=== PATIENT | male | born 1960 | race African-American/Black ===

== ENCOUNTER 2019-08-30 19:27 | Inpatient (IN) | payer MEDICAID, OTHER ==
[~2019-08-30] VITALS: Ht 180.3 cm; Wt 128.1 kg
[~2019-08-30 19:27] MED LIST: ADENOSINE 6 MG/2 ML ONE
--- NOTE | 2019-08-30 19:55 | NUR ---
Xray awaiting CT C-spine clearance
[2019-08-30] MEDS ORDERED: SODIUM CHLORIDE 0.9% 1,000ML IVBOLUS ONE (20:00)
--- NOTE | 2019-08-30 20:00 | NUR ---
PATIENT TAKEN TO CT WITH TWO RNS ON CARDIAC MONITORING. PATIENT TOLERATED CT WELL, C-SPINE PRECAUTIONS USED. PATIENT'S STATUS REMAINED UNCHANGED THROUGHOUT PROCESS. UPON ARRIVING TO ROOM THE PATIENT STATED THAT HE WAS BECOMING SLEEPY, PATIENT REMAINS AWAKE AND ABLE TO ANSWER QUESTIONS APPROPRIATELY. PATIENT WILL BE TRANSFERED TO [facility] FOR HIGHER LEVEL OF CARE. REPORT GIVEN TO TRAUMA RN
[2019-08-30] MEDS ORDERED: NOREPINEPHRINE 8 MG in SODIUM CHLORIDE 0.9% 242 ML IV PRN (20:39)
--- NOTE | 2019-08-30 20:49 | NUR ---
pt rm was moved to t3 d/t spinal injury per dr alcala
[2019-08-30] MEDS ORDERED: DEXAMETHASONE 4 MG/ML, 1ML ONE (20:55)
[2019-08-30 20:57] LABS: BASOPHILS # (AUTO) 0.05 x10^3/uL (0-0.1); BASOPHILS % (AUTO) 1 % (0-1); EOSINOPHILS # (AUTO) 0.25 x10^3/uL (0-0.4); EOSINOPHILS % (AUTO) 3 % (1-7); LYMPHOCYTES # (AUTO) 1.33 x10^3/uL (1-3.4); LYMPHOCYTES % (AUTO) 14 % (22-44); MD NO; MEAN CORPUSCULAR HEMOGLOBIN 31.5 pg (27.5-34.5); MEAN CORPUSCULAR HGB CONC 32.2 g/dL (33.2-36.2); MEAN CORPUSCULAR VOLUME 97.8 fL (81-97); MEAN PLATELET VOLUME 7.7 fL (7.4-10.4); MONOCYTES # (AUTO) 0.59 x10^3/uL (0.2-0.8); MONOCYTES % (AUTO) 6 % (2-9); NEUTROPHILS # (AUTO) 7.49 x10^3/uL (1.8-6.8); NEUTROPHILS % (AUTO) 77 % (42-75); PLATELET COUNT 221 x10^3/uL (130-400); RED BLOOD COUNT 3.25 x10^6/uL (4.38-5.82); RED CELL DISTRIBUTION WIDTH 14.6 % (9.4-14.8)
[2019-08-30] MEDS ORDERED: DEXAMETHASONE 4 MG/ML, 1ML IVPush ONE (21:00)
[2019-08-30 21:06] LABS: INTERNATIONAL NORMALIZED RATIO 0.97 (0.93-1.1); PROTHROMBIN TIME 10.3 Seconds (9.6-11.5)
[2019-08-30 21:07] LABS: ALANINE AMINOTRANSFERASE 16 U/L (12-78); ALBUMIN 2.3 g/dL (3.4-5.0); ANION GAP 3 mmol/L (5-15); CALCIUM 7.1 mg/dL (8.5-10.1); CHLORIDE 110 mmol/L (98-107); CREATININE 1.64 mg/dL (0.7-1.3)
[2019-08-30 21:11] LABS: ALKALINE PHOSPHATASE 52 U/L (45-117); BILIRUBIN,TOTAL 0.3 mg/dL (0.2-1.0); TOTAL PROTEIN 6.1 g/dL (6.4-8.2); TROPONIN I < 0.015 ng/mL (0.000-0.045)
[2019-08-30] MEDS ORDERED: LORazepam 2 MG/ML, 1ML ONE (21:18)
[2019-08-30] MEDS ORDERED: LORazepam 2 MG/ML, 1ML IVPush ONE (21:30)
[2019-08-30 21:38] LABS: MICROSCOPIC NOT IND
[2019-08-30 21:44] LABS: CULTURE INDICATED? NO
[2019-08-30] MEDS ORDERED: LISI-170 PO (23:05)
[2019-08-30] MEDS ORDERED: IBUP-1222 PO (23:05)
[2019-08-30] MEDS ORDERED: HYDR50TA99 PO (23:05)
[2019-08-30] MEDS ORDERED: CARV25TA12 PO (23:05)
[2019-08-30] MEDS ORDERED: PRED20TA PO (23:05)
[2019-08-30] MEDS ORDERED: FURO-92 PO (23:05)
[2019-08-30] MEDS ORDERED: CARV12.5 PO (23:05)
[2019-08-30] MEDS ORDERED: ALBU1.25 NEB (23:06)
--- NOTE | 2019-08-30 23:08 | NUR ---
mri with neck collar on by dr alcala guided pt was rodger hr up to 31 junctional rhythm, notified to dr alcala . given levophed iv via gtt during the mri then hr was maintained up tp 70-80'd pt is having severe sleep apnea with snoring then hr dropped up to 40'd md aware pt needs neck collar and map >95 per neurosurgeon order pt is alert orient answered all qurstion from staffs home meds rec completed at this time dr amarilis ortega at bed side for admit fatimah
--- NOTE | 2019-08-30 23:14 | NUR ---
currently pt is npo until further notice by
[2019-08-30] MEDS ORDERED: ONDANSETRON 2MG/ML, 2ML IVPush PRN (23:30)
[2019-08-30] MEDS ORDERED: morphine SULFATE 10 MG/ML, 1ML IVPush PRN (23:30)
--- NOTE | 2019-08-30 23:31 | NUR ---
given report to rn antonio bp stable with levophed neuro doesnt change
[2019-08-30 23:45] VITALS: BP 130/92
[2019-08-31] MEDS: NICOTINE 14MG/24 HR PATCH.TD24 TD SCH ×2 (00:28→21:31)
[2019-08-31] MEDS: SODIUM CHLORIDE 0.9% 1,000 ML IV SCH (00:28)
[2019-08-31] MEDS: INSULIN LISPRO 100 UNITS/ML, PEN SQ-INSULIN SCH ×5 (00:29→21:38)
[2019-08-31] MEDS: FAMOTIDINE 20 MG/2 ML IVPush SCH ×2 (00:29→13:00)
[2019-08-31] MEDS ORDERED: ALBUTEROL SULFATE 2.5 MG/3 ML NPPB PRN ×2 (00:30→12:00)
[2019-08-31 01:05] LABS: TROPONIN I < 0.015 ng/mL (0.000-0.045)
[2019-08-31] MEDS: NOREPINEPHRINE 8 MG in SODIUM CHLORIDE 0.9% 242 ML IV PRN (01:32)
[2019-08-31 02:44] LABS: AMPHETAMINE SCREEN, URINE Negative (Negative); BARBITURATE SCREEN, URINE Negative (Negative); BENZODIAZEPINE SCREEN, URINE Negative (Negative); CANNABINOID SCREEN, URINE Negative (Negative); COCAINE SCREEN, URINE Negative (Negative); METHADONE SCREEN, URINE Negative (Negative); OPIATE SCREEN, URINE Negative (Negative)
[2019-08-31 06:12] VITALS: BP 134/77
[2019-08-31 08:01] LABS: ANION GAP 3 mmol/L (5-15); CALCIUM 8.5 mg/dL (8.5-10.1); CHLORIDE 107 mmol/L (98-107); CREATININE 1.56 mg/dL (0.7-1.3)
[2019-08-31 08:05] LABS: TROPONIN I < 0.015 ng/mL (0.000-0.045)
[2019-08-31 08:11] LABS: MEAN CORPUSCULAR HEMOGLOBIN 31.5 pg (27.5-34.5); MEAN CORPUSCULAR HGB CONC 32.2 g/dL (33.2-36.2); MEAN CORPUSCULAR VOLUME 97.7 fL (81-97); MEAN PLATELET VOLUME 7.9 fL (7.4-10.4); PLATELET COUNT 304 x10^3/uL (130-400); RED BLOOD COUNT 4.17 x10^6/uL (4.38-5.82); RED CELL DISTRIBUTION WIDTH 14.4 % (9.4-14.8)
[2019-08-31 08:24] LABS: BASOPHILS # (AUTO) 0.02 x10^3/uL (0-0.1); BASOPHILS % (AUTO) 0 % (0-1); EOSINOPHILS % (AUTO) 0 % (1-7); LYMPHOCYTES % (AUTO) 5 % (22-44); MD SCAN; MONOCYTES # (AUTO) 0.03 x10^3/uL (0.2-0.8); MONOCYTES % (AUTO) 0 % (2-9); NEUTROPHILS # (AUTO) 10.47 x10^3/uL (1.8-6.8)
[2019-08-31 08:25] LABS: NEUTROPHILS % (AUTO) 95 % (42-75)
[2019-08-31] MEDS: SENNA/DOCUSATE TABLET PO SCH (09:00)
[2019-08-31] MEDS ORDERED: THROMBIN 5,000 UNIT VIAL TP ONE ×2 (10:27→13:44)
[2019-08-31] MEDS ORDERED: METHYLENE BLUE 10 MG/ML 10ML ONE (10:27)
[2019-08-31] MEDS ORDERED: BUPIVACAINE/PF 0.5% ONE (10:27)
[2019-08-31] MEDS ORDERED: BACITRACIN 50,000 UNIT ONE (10:28)
[2019-08-31] MEDS ORDERED: EPINEPHRINE 1 MG/ML, 1ML ONE (10:28)
[2019-08-31] MEDS ORDERED: FENTANYL PF 250 MCG/5ML ONE ×2 (10:49→13:32)
[2019-08-31] MEDS ORDERED: MIDAZOLAM 1 MG/ML, 2ML ONE (10:49)
[2019-08-31] MEDS ORDERED: PROPOFOL 10 MG/ML, 20ML ONE (10:53)
[2019-08-31] MEDS ORDERED: ROCURONIUM 10MG/ML,5ML ONE (10:53)
[2019-08-31] MEDS ORDERED: CEFAZOLIN 1,000 MG ONE ×2 (10:53→12:14)
[2019-08-31] MEDS ORDERED: NEOSTIGMINE 1 MG/ML, 10ML ONE (10:53)
[2019-08-31] MEDS ORDERED: PROPOFOL 100 ML ONE (10:53)
[2019-08-31] MEDS ORDERED: GLYCOPYRROLATE 0.2MG/1ML, 5ML ONE (10:53)
[2019-08-31] MEDS ORDERED: MEPERIDINE/PF 25MG/ML,1ML IVPush PRN (12:00)
[2019-08-31] MEDS ORDERED: MORPHINE SULFATE 4 MG/ML, 1ML IVPush PRN (12:00)
[2019-08-31] MEDS ORDERED: OXYcodone 5 MG/5 ML ORAL.SOL UDC PO PRN (12:00)
[2019-08-31] MEDS ORDERED: ALBUTEROL/IPRATROPIUM 2.5MG/0.5MG, 3 ML NPPB PRN (12:00)
[2019-08-31] MEDS ORDERED: HYDROmorphone 2 MG/ML, 1ML IVPush PRN (12:00)
[2019-08-31] MEDS ORDERED: ONDANSETRON 2MG/ML, 2ML IV PRN (12:00)
[2019-08-31] MEDS ORDERED: LABETALOL 5MG/ML, 20ML IV PRN (12:00)
[2019-08-31] MEDS ORDERED: FENTANYL PF 100 MCG/2ML IV PRN (12:00)
[2019-08-31] MEDS ORDERED: hydrALAzine 20 MG/ML, 1ML IV PRN (12:00)
[2019-08-31] MEDS ORDERED: PHENYLEPHRINE 10 MG/ML ONE (12:28)
[2019-08-31] MEDS ORDERED: SUGAMMADEX 200 MG/2 ML IVPush ONE ×2 (12:47)
[2019-08-31] MEDS ORDERED: BACITRACIN OINT 500U/GM, 15 GM ONE (12:52)
[2019-08-31] MEDS ORDERED: PROPOFOL 50 ML ONE ×2 (13:50→14:53)
[2019-08-31] MEDS ORDERED: VANCOMYCIN 1,000 MG ONE (14:27)
[2019-08-31] MEDS ORDERED: INSULIN SINGLE DOSE, ER ONE (14:36)
[2019-08-31] MEDS ORDERED: SENNA/DOCUSATE TABLET PO PRN (16:00)
[2019-08-31] MEDS ORDERED: ACETAMINOPHEN 650 MG SUPP PR PRN (16:00)
[2019-08-31] MEDS ORDERED: MAGNESIUM HYDROXIDE 8%, 30ML UDC PO PRN (16:00)
[2019-08-31] MEDS ORDERED: DIPHENHYDRAMINE 50 MG CAPSULE PO PRN (16:00)
[2019-08-31] MEDS ORDERED: PHARMACY MAY ADJ FOR RENAL FX MC PRN (16:00)
[2019-08-31] MEDS ORDERED: CYCLOBENZAPRINE 10 MG TABLET PO PRN (16:00)
[2019-08-31] MEDS ORDERED: ONDANSETRON 2MG/ML, 2ML IVPush PRN (16:00)
[2019-08-31] MEDS ORDERED: PROMETHAZINE 25 MG/ML, 1ML IM PRN (16:00)
[2019-08-31] MEDS ORDERED: INSULIN REGULAR 100 UNITS/ML, 3ML VIAL SQ-INSULIN PRN (16:00)
[2019-08-31] MEDS ORDERED: HYDROmorphone 1 MG/ML, 1ML INJ ONE (16:35)
[2019-08-31] MEDS ORDERED: NS + 20MEQ KCL 1,000 ML IV SCH (17:00)
[2019-08-31] MEDS ORDERED: METHOCARBAMOL 1,000 MG in DEXTROSE 5% 100 ML IV ONE (17:00)
[2019-08-31 18:44] LABS: ANION GAP 2 mmol/L (5-15); CALCIUM 8.1 mg/dL (8.5-10.1); CHLORIDE 112 mmol/L (98-107); CREATININE 1.16 mg/dL (0.7-1.3)
[2019-08-31 20:15] VITALS: BP 126/68
[2019-08-31] MEDS: CEFAZOLIN PMX 1GM/50ML 50 ML IVPB SCH (21:30)
[2019-09-01 04:35] LABS: ALBUMIN 2.4 g/dL (3.4-5.0); ANION GAP 6 mmol/L (5-15); CHLORIDE 110 mmol/L (98-107)
[2019-09-01 04:39] LABS: ALANINE AMINOTRANSFERASE 19 U/L (12-78); ALKALINE PHOSPHATASE 50 U/L (45-117); BILIRUBIN,TOTAL 0.6 mg/dL (0.2-1.0); CREATININE 1.17 mg/dL (0.7-1.3); TOTAL PROTEIN 7.2 g/dL (6.4-8.2)
[2019-09-01] MEDS: SODIUM CHLORIDE 0.9% 1,000 ML IV SCH ×2 (04:53→17:40)
[2019-09-01 05:15] LABS: MEAN CORPUSCULAR HEMOGLOBIN 31.3 pg (27.5-34.5); PLATELET COUNT 230 x10^3/uL (130-400); RED BLOOD COUNT 3.61 x10^6/uL (4.38-5.82); RED CELL DISTRIBUTION WIDTH 14.4 % (9.4-14.8)
[2019-09-01 05:53] LABS: BASOPHILS % (AUTO) 0 % (0-1); EOSINOPHILS % (AUTO) 0 % (1-7); LYMPHOCYTES % (AUTO) 5 % (22-44); MD SCAN; MONOCYTES # (AUTO) 0.91 x10^3/uL (0.2-0.8); MONOCYTES % (AUTO) 5 % (2-9); NEUTROPHILS # (AUTO) 15.37 x10^3/uL (1.8-6.8); NEUTROPHILS % (AUTO) 89 % (42-75)
[2019-09-01] MEDS: CEFAZOLIN PMX 1GM/50ML 50 ML IVPB SCH (05:55)
[2019-09-01] MEDS: INSULIN LISPRO 100 UNITS/ML, PEN SQ-INSULIN SCH (07:00)
[2019-09-01] MEDS: ACETAMINOPHEN 325 MG TABLET PO PRN (07:33)
[2019-09-01 08:00] VITALS: BP 133/69
[2019-09-01] MEDS: NOREPINEPHRINE 8 MG in SODIUM CHLORIDE 0.9% 242 ML IV PRN (08:01)
[2019-09-01] MEDS: NEUTRA PHOS K 250 MG TABLET PO SCH ×2 (10:21→17:40)
[2019-09-01] MEDS: SENNA/DOCUSATE TABLET PO SCH (10:21)
[2019-09-01] MEDS: FAMOTIDINE 20 MG/2 ML IVPush SCH (10:21)
[2019-09-01] MEDS: INSULIN REGULAR 100 UNITS/ML, 3ML VIAL SQ-INSULIN SCH ×3 (11:00→21:00)
[2019-09-01 20:00] VITALS: BP 147/75
[2019-09-01] MEDS: OXYcodone/APAP 5/325MG TABLET PO PRN (21:57)
[2019-09-01] MEDS ORDERED: METHOCARBAMOL 750 MG in DEXTROSE 5% 100 ML IV PRN (23:00)
[2019-09-01] MEDS: NICOTINE 14MG/24 HR PATCH.TD24 TD SCH (23:43)
[2019-09-02 00:56] LABS: ALANINE AMINOTRANSFERASE 17 U/L (12-78); ALBUMIN 2.3 g/dL (3.4-5.0); ANION GAP 2 mmol/L (5-15); CALCIUM 8.1 mg/dL (8.5-10.1); CHLORIDE 110 mmol/L (98-107)
[2019-09-02 00:58] LABS: ALKALINE PHOSPHATASE 44 U/L (45-117); BILIRUBIN,TOTAL 0.9 mg/dL (0.2-1.0); TOTAL PROTEIN 6.7 g/dL (6.4-8.2)
[2019-09-02] MEDS: OXYcodone/APAP 5/325MG TABLET PO PRN ×3 (02:40→19:55)
[2019-09-02 05:37] LABS: ANION GAP 2 mmol/L (5-15); CALCIUM 8.2 mg/dL (8.5-10.1); CHLORIDE 109 mmol/L (98-107)
[2019-09-02 05:38] LABS: BASOPHILS % (AUTO) 0 % (0-1); EOSINOPHILS % (AUTO) 0 % (1-7); LYMPHOCYTES # (AUTO) 1.29 x10^3/uL (1-3.4); LYMPHOCYTES % (AUTO) 10 % (22-44); MD NO; MEAN CORPUSCULAR HEMOGLOBIN 31.8 pg (27.5-34.5); MEAN CORPUSCULAR HGB CONC 32.6 g/dL (33.2-36.2); MEAN CORPUSCULAR VOLUME 97.7 fL (81-97); MEAN PLATELET VOLUME 8.1 fL (7.4-10.4); MONOCYTES # (AUTO) 1.08 x10^3/uL (0.2-0.8); MONOCYTES % (AUTO) 8 % (2-9); NEUTROPHILS # (AUTO) 10.92 x10^3/uL (1.8-6.8); NEUTROPHILS % (AUTO) 82 % (42-75); PLATELET COUNT 193 x10^3/uL (130-400); RED BLOOD COUNT 3.33 x10^6/uL (4.38-5.82); RED CELL DISTRIBUTION WIDTH 14.2 % (9.4-14.8)
[2019-09-02] MEDS: INSULIN REGULAR 100 UNITS/ML, 3ML VIAL SQ-INSULIN SCH ×4 (07:00→19:55)
[2019-09-02] MEDS: SODIUM CHLORIDE 0.9% 1,000 ML IV SCH ×2 (07:32→21:44)
[2019-09-02] MEDS: SENNA/DOCUSATE TABLET PO SCH (07:32)
[2019-09-02] MEDS: FAMOTIDINE 20 MG/2 ML IVPush SCH (07:33)
[2019-09-02 08:00] VITALS: BP 131/81
[2019-09-02] MEDS: HEPARIN 5,000 UNITS/ML, 1ML SQ SCH ×2 (11:57→19:55)
[2019-09-02] MEDS ORDERED: DOCUSATE 50 MG/5 ML, 10ML UDC PO PRN (16:00)
[2019-09-02] MEDS ORDERED: LACTULOSE 20 GM/30 ML UDC PO PRN (16:00)
[2019-09-02] MEDS ORDERED: POLYETHYLENE GLYCOL 17 GM PACKET PO PRN (16:00)
[2019-09-02] MEDS ORDERED: BISACODYL 10 MG SUPP PR PRN (16:00)
[2019-09-02 20:00] VITALS: BP 146/73
[2019-09-03] MEDS: NICOTINE 14MG/24 HR PATCH.TD24 TD SCH ×2 (00:04→22:41)
[2019-09-03] MEDS: OXYcodone/APAP 5/325MG TABLET PO PRN ×2 (02:18→15:40)
[2019-09-03] MEDS: NOREPINEPHRINE 8 MG in SODIUM CHLORIDE 0.9% 242 ML IV PRN (05:12)
[2019-09-03] MEDS: HYDROmorphone 1 MG/ML, 1ML INJ IVPush PRN ×2 (05:26→09:13)
[2019-09-03] MEDS: HEPARIN 5,000 UNITS/ML, 1ML SQ SCH ×3 (05:26→20:46)
[2019-09-03 05:35] LABS: BASOPHILS # (AUTO) 0.02 x10^3/uL (0-0.1); BASOPHILS % (AUTO) 0 % (0-1); EOSINOPHILS # (AUTO) 0.02 x10^3/uL (0-0.4); EOSINOPHILS % (AUTO) 0 % (1-7); LYMPHOCYTES # (AUTO) 1.19 x10^3/uL (1-3.4); LYMPHOCYTES % (AUTO) 10 % (22-44); MD NO; MEAN CORPUSCULAR HEMOGLOBIN 31.2 pg (27.5-34.5); MEAN CORPUSCULAR HGB CONC 31.9 g/dL (33.2-36.2); MEAN PLATELET VOLUME 7.7 fL (7.4-10.4); MONOCYTES # (AUTO) 0.66 x10^3/uL (0.2-0.8); MONOCYTES % (AUTO) 5 % (2-9); NEUTROPHILS # (AUTO) 10.34 x10^3/uL (1.8-6.8); NEUTROPHILS % (AUTO) 85 % (42-75); PLATELET COUNT 191 x10^3/uL (130-400)
[2019-09-03 05:46] LABS: ANION GAP 4 mmol/L (5-15); CALCIUM 8.3 mg/dL (8.5-10.1); CHLORIDE 110 mmol/L (98-107)
[2019-09-03 05:47] LABS: CREATININE 0.85 mg/dL (0.7-1.3)
[2019-09-03] MEDS: INSULIN REGULAR 100 UNITS/ML, 3ML VIAL SQ-INSULIN SCH ×4 (07:00→20:46)
[2019-09-03] MEDS ORDERED: FUROSEMIDE 20 MG TABLET PO SCH (09:00)
[2019-09-03] MEDS: SENNA/DOCUSATE TABLET PO SCH (09:17)
[2019-09-03] MEDS: FAMOTIDINE 20 MG/2 ML IVPush SCH (09:25)
[2019-09-03] MEDS: ACETAMINOPHEN 325 MG TABLET PO PRN ×2 (12:13→20:45)
[2019-09-03] MEDS: METHOCARBAMOL 750 MG TABLET PO SCH (22:41)
[2019-09-04] MEDS: OXYcodone/APAP 5/325MG TABLET PO PRN (01:15)
[2019-09-04] MEDS: METHOCARBAMOL 750 MG TABLET PO SCH ×3 (05:15→23:41)
[2019-09-04] MEDS: HEPARIN 5,000 UNITS/ML, 1ML SQ SCH ×3 (05:15→21:56)
[2019-09-04 05:50] LABS: MEAN CORPUSCULAR HGB CONC 31.6 g/dL (33.2-36.2); MEAN CORPUSCULAR VOLUME 97.9 fL (81-97); MEAN PLATELET VOLUME 8.1 fL (7.4-10.4); PLATELET COUNT 200 x10^3/uL (130-400); RED CELL DISTRIBUTION WIDTH 13.9 % (9.4-14.8)
[2019-09-04 06:12] LABS: CALCIUM 8.3 mg/dL (8.5-10.1); CHLORIDE 107 mmol/L (98-107)
[2019-09-04 06:16] LABS: ANION GAP 3 mmol/L (5-15); CREATININE 0.93 mg/dL (0.7-1.3)
[2019-09-04 06:35] LABS: BASOPHILS % (AUTO) 0 % (0-1); EOSINOPHILS # (AUTO) 0.03 x10^3/uL (0-0.4); EOSINOPHILS % (AUTO) 0 % (1-7); LYMPHOCYTES # (AUTO) 1.33 x10^3/uL (1-3.4); LYMPHOCYTES % (AUTO) 11 % (22-44); MD NO; MONOCYTES # (AUTO) 0.88 x10^3/uL (0.2-0.8); MONOCYTES % (AUTO) 7 % (2-9); NEUTROPHILS # (AUTO) 10.13 x10^3/uL (1.8-6.8); NEUTROPHILS % (AUTO) 82 % (42-75)
[2019-09-04] MEDS: INSULIN REGULAR 100 UNITS/ML, 3ML VIAL SQ-INSULIN SCH ×4 (07:00→21:53)
[2019-09-04] MEDS: SENNA/DOCUSATE TABLET PO SCH (08:10)
[2019-09-04] MEDS: FAMOTIDINE 20 MG/2 ML IVPush SCH (08:10)
[2019-09-04] MEDS: ACETAMINOPHEN 325 MG TABLET PO PRN (08:18)
[2019-09-04] MEDS: NICOTINE 14MG/24 HR PATCH.TD24 TD SCH (23:41)
[2019-09-05 03:53] LABS: BASOPHILS # (AUTO) 0.04 x10^3/uL (0-0.1); BASOPHILS % (AUTO) 0 % (0-1); EOSINOPHILS # (AUTO) 0.03 x10^3/uL (0-0.4); EOSINOPHILS % (AUTO) 0 % (1-7); LYMPHOCYTES # (AUTO) 1.65 x10^3/uL (1-3.4); LYMPHOCYTES % (AUTO) 14 % (22-44); MD NO; MEAN CORPUSCULAR HEMOGLOBIN 31.3 pg (27.5-34.5); MEAN CORPUSCULAR HGB CONC 32.4 g/dL (33.2-36.2); MEAN CORPUSCULAR VOLUME 96.5 fL (81-97); MEAN PLATELET VOLUME 8.2 fL (7.4-10.4); MONOCYTES % (AUTO) 7 % (2-9); NEUTROPHILS % (AUTO) 79 % (42-75); PLATELET COUNT 221 x10^3/uL (130-400); RED BLOOD COUNT 3.38 x10^6/uL (4.38-5.82); RED CELL DISTRIBUTION WIDTH 13.8 % (9.4-14.8)
[2019-09-05] MEDS: ACETAMINOPHEN 325 MG TABLET PO PRN (04:36)
[2019-09-05] MEDS: HEPARIN 5,000 UNITS/ML, 1ML SQ SCH ×3 (06:11→21:51)
[2019-09-05] MEDS: FAMOTIDINE 20 MG/2 ML IVPush SCH (08:31)
[2019-09-05] MEDS: METHOCARBAMOL 750 MG TABLET PO SCH ×3 (08:31→23:44)
[2019-09-05] MEDS: INSULIN REGULAR 100 UNITS/ML, 3ML VIAL SQ-INSULIN SCH ×4 (08:31→21:00)
[2019-09-05] MEDS: SENNA/DOCUSATE TABLET PO SCH (08:32)
[2019-09-05] MEDS: OXYcodone/APAP 5/325MG TABLET PO PRN ×3 (11:17→21:25)
[2019-09-05] MEDS: ZOLPIDEM 10MG TABLET PO PRN (21:51)
[2019-09-05] MEDS: NICOTINE 14MG/24 HR PATCH.TD24 TD SCH (23:45)
[2019-09-06] MEDS: HEPARIN 5,000 UNITS/ML, 1ML SQ SCH ×3 (06:01→21:54)
[2019-09-06] MEDS: OXYcodone/APAP 5/325MG TABLET PO PRN ×4 (06:13→21:53)
[2019-09-06] MEDS: INSULIN REGULAR 100 UNITS/ML, 3ML VIAL SQ-INSULIN SCH ×4 (06:19→21:00)
[2019-09-06 06:54] LABS: BASOPHILS % (AUTO) 0 % (0-1); EOSINOPHILS # (AUTO) 0.05 x10^3/uL (0-0.4); EOSINOPHILS % (AUTO) 0 % (1-7); LYMPHOCYTES # (AUTO) 1.51 x10^3/uL (1-3.4); LYMPHOCYTES % (AUTO) 12 % (22-44); MD NO; MEAN CORPUSCULAR HEMOGLOBIN 31.4 pg (27.5-34.5); MEAN CORPUSCULAR HGB CONC 32.3 g/dL (33.2-36.2); MEAN CORPUSCULAR VOLUME 97.3 fL (81-97); MEAN PLATELET VOLUME 7.5 fL (7.4-10.4); MONOCYTES # (AUTO) 0.32 x10^3/uL (0.2-0.8); MONOCYTES % (AUTO) 3 % (2-9); NEUTROPHILS # (AUTO) 10.83 x10^3/uL (1.8-6.8); NEUTROPHILS % (AUTO) 85 % (42-75); PLATELET COUNT 236 x10^3/uL (130-400); RED BLOOD COUNT 3.53 x10^6/uL (4.38-5.82)
[2019-09-06] MEDS: SENNA/DOCUSATE TABLET PO SCH (09:17)
[2019-09-06] MEDS: METHOCARBAMOL 750 MG TABLET PO SCH ×3 (09:17→23:13)
[2019-09-06 12:14] VITALS: BP 122/86
[2019-09-06] MEDS ORDERED: BISACODYL 10 MG SUPP PR ONE (14:00)
[2019-09-06] MEDS: LIDODERM 5% PATCH TD SCH (14:13)
[2019-09-06 18:48] VITALS: BP 126/79
[2019-09-06] MEDS: ZOLPIDEM 10MG TABLET PO PRN (21:54)
[2019-09-06] MEDS: NICOTINE 7 MG/24 HR PATCH.TD24 TD SCH (23:13)
[2019-09-07] MEDS: OXYcodone/APAP 5/325MG TABLET PO PRN (06:13)
[2019-09-07] MEDS: HEPARIN 5,000 UNITS/ML, 1ML SQ SCH ×3 (06:13→22:38)
[2019-09-07] MEDS: INSULIN REGULAR 100 UNITS/ML, 3ML VIAL SQ-INSULIN SCH ×4 (06:47→20:44)
[2019-09-07 08:15] VITALS: BP 114/77
[2019-09-07] MEDS: SENNA/DOCUSATE TABLET PO SCH (08:40)
[2019-09-07] MEDS: METHOCARBAMOL 750 MG TABLET PO SCH ×2 (08:40→17:04)
[2019-09-07] MEDS: LIDODERM 5% PATCH TD SCH (13:30)
[2019-09-07 13:33] VITALS: BP 98/64
[2019-09-07] MEDS ORDERED: ZOLPIDEM 5MG TABLET PO PRN ×2 (14:00)
[2019-09-07] MEDS: ACETAMINOPHEN 500 MG TABLET PO SCH ×2 (14:07→20:44)
[2019-09-07] MEDS: OXYcodone IR 5MG TABLET PO PRN (14:08)
[2019-09-07 18:38] VITALS: BP 117/75
[2019-09-07] MEDS: NICOTINE 7 MG/24 HR PATCH.TD24 TD SCH (22:38)
[2019-09-08 00:30] VITALS: BP 111/72
[2019-09-08] MEDS: ACETAMINOPHEN 500 MG TABLET PO SCH ×4 (02:36→21:02)
[2019-09-08 05:56] LABS: BASOPHILS # (AUTO) 0.05 x10^3/uL (0-0.1); BASOPHILS % (AUTO) 1 % (0-1); EOSINOPHILS # (AUTO) 0.07 x10^3/uL (0-0.4); EOSINOPHILS % (AUTO) 1 % (1-7); LYMPHOCYTES # (AUTO) 2.44 x10^3/uL (1-3.4); LYMPHOCYTES % (AUTO) 25 % (22-44); MD NO; MEAN CORPUSCULAR HEMOGLOBIN 31.5 pg (27.5-34.5); MEAN CORPUSCULAR HGB CONC 32.3 g/dL (33.2-36.2); MEAN CORPUSCULAR VOLUME 97.6 fL (81-97); MEAN PLATELET VOLUME 7.8 fL (7.4-10.4); MONOCYTES # (AUTO) 0.65 x10^3/uL (0.2-0.8); MONOCYTES % (AUTO) 7 % (2-9); NEUTROPHILS # (AUTO) 6.49 x10^3/uL (1.8-6.8); NEUTROPHILS % (AUTO) 67 % (42-75); PLATELET COUNT 259 x10^3/uL (130-400); RED CELL DISTRIBUTION WIDTH 14.3 % (9.4-14.8)
[2019-09-08] MEDS: HEPARIN 5,000 UNITS/ML, 1ML SQ SCH ×3 (05:59→23:31)
[2019-09-08 06:04] LABS: ANION GAP 6 mmol/L (5-15); CALCIUM 8.6 mg/dL (8.5-10.1); CHLORIDE 103 mmol/L (98-107)
[2019-09-08] MEDS: INSULIN REGULAR 100 UNITS/ML, 3ML VIAL SQ-INSULIN SCH ×4 (07:00→21:00)
[2019-09-08 07:27] VITALS: BP 116/79
[2019-09-08] MEDS: SENNA/DOCUSATE TABLET PO SCH (07:58)
[2019-09-08] MEDS: METHOCARBAMOL 750 MG TABLET PO SCH ×2 (07:58)
[2019-09-08 13:33] VITALS: BP 134/87
[2019-09-08] MEDS: LIDODERM 5% PATCH TD SCH (13:42)
[2019-09-08 18:30] VITALS: BP 122/81
[2019-09-08] MEDS: NICOTINE 7 MG/24 HR PATCH.TD24 TD SCH (23:30)
[2019-09-09 01:02] VITALS: BP 111/74
[2019-09-09] MEDS: ACETAMINOPHEN 500 MG TABLET PO SCH ×4 (02:35→20:48)
[2019-09-09] MEDS: INSULIN REGULAR 100 UNITS/ML, 3ML VIAL SQ-INSULIN SCH ×4 (07:17→20:48)
[2019-09-09] MEDS: HEPARIN 5,000 UNITS/ML, 1ML SQ SCH ×3 (07:22→22:53)
[2019-09-09 07:43] VITALS: BP 115/71
[2019-09-09] MEDS: SENNA/DOCUSATE TABLET PO SCH (08:04)
[2019-09-09 13:58] VITALS: BP 117/81
[2019-09-09] MEDS: LIDODERM 5% PATCH TD SCH (15:09)
[2019-09-09] MEDS: CYCLOBENZAPRINE 10 MG TABLET PO SCH ×2 (17:02→20:48)
[2019-09-09 18:41] VITALS: BP 114/77
[2019-09-10] MEDS: ACETAMINOPHEN 500 MG TABLET PO SCH ×4 (01:26→19:00)
[2019-09-10 01:54] VITALS: BP 94/64
[2019-09-10] MEDS: HEPARIN 5,000 UNITS/ML, 1ML SQ SCH ×2 (06:30→15:00)
[2019-09-10] MEDS: INSULIN REGULAR 100 UNITS/ML, 3ML VIAL SQ-INSULIN SCH ×4 (06:34→21:00)
[2019-09-10 08:10] VITALS: BP 104/71
[2019-09-10] MEDS: SENNA/DOCUSATE TABLET PO SCH (09:00)
[2019-09-10] MEDS: CYCLOBENZAPRINE 10 MG TABLET PO SCH ×3 (09:36→21:00)
[2019-09-10] MEDS: OXYcodone IR 5MG TABLET PO PRN (09:36)
[2019-09-10] MEDS: LIDODERM 5% PATCH TD SCH (13:30)
[2019-09-10 18:49] VITALS: BP 116/80
[2019-09-11] MEDS: HEPARIN 5,000 UNITS/ML, 1ML SQ SCH ×4 (00:08→23:00)
[2019-09-11 02:14] VITALS: BP 108/73
[2019-09-11] MEDS: ACETAMINOPHEN 500 MG TABLET PO SCH ×4 (02:46→21:00)
[2019-09-11] MEDS: INSULIN REGULAR 100 UNITS/ML, 3ML VIAL SQ-INSULIN SCH ×4 (07:00→21:00)
[2019-09-11 07:20] VITALS: BP 105/72
[2019-09-11] MEDS: CYCLOBENZAPRINE 10 MG TABLET PO SCH ×3 (09:00→21:00)
[2019-09-11] MEDS: SENNA/DOCUSATE TABLET PO SCH (09:42)
[2019-09-11] MEDS: LIDODERM 5% PATCH TD SCH (13:30)
[2019-09-11 21:00] VITALS: BP 121/77
[2019-09-12] MEDS: ACETAMINOPHEN 500 MG TABLET PO SCH ×4 (02:44→20:45)
[2019-09-12 02:58] VITALS: BP 106/76
[2019-09-12] MEDS: HEPARIN 5,000 UNITS/ML, 1ML SQ SCH ×3 (05:27→22:33)
[2019-09-12 06:06] LABS: ANION GAP 5 mmol/L (5-15); CALCIUM 8.9 mg/dL (8.5-10.1); CHLORIDE 103 mmol/L (98-107)
[2019-09-12 06:08] LABS: CREATININE 1.16 mg/dL (0.7-1.3)
[2019-09-12 06:09] LABS: BASOPHILS # (AUTO) 0.04 x10^3/uL (0-0.1); BASOPHILS % (AUTO) 1 % (0-1); EOSINOPHILS # (AUTO) 0.21 x10^3/uL (0-0.4); EOSINOPHILS % (AUTO) 2 % (1-7); LYMPHOCYTES # (AUTO) 1.97 x10^3/uL (1-3.4); LYMPHOCYTES % (AUTO) 21 % (22-44); MD NO; MEAN CORPUSCULAR HEMOGLOBIN 31.2 pg (27.5-34.5); MEAN CORPUSCULAR VOLUME 97.4 fL (81-97); MEAN PLATELET VOLUME 7.7 fL (7.4-10.4); MONOCYTES # (AUTO) 0.49 x10^3/uL (0.2-0.8); MONOCYTES % (AUTO) 5 % (2-9); NEUTROPHILS # (AUTO) 6.67 x10^3/uL (1.8-6.8); NEUTROPHILS % (AUTO) 71 % (42-75); PLATELET COUNT 334 x10^3/uL (130-400); RED BLOOD COUNT 3.35 x10^6/uL (4.38-5.82); RED CELL DISTRIBUTION WIDTH 14.5 % (9.4-14.8)
[2019-09-12] MEDS: INSULIN REGULAR 100 UNITS/ML, 3ML VIAL SQ-INSULIN SCH ×4 (07:41→21:00)
[2019-09-12 07:42] VITALS: BP 101/69
[2019-09-12 07:59] VITALS: BP 101/70
[2019-09-12] MEDS: SENNA/DOCUSATE TABLET PO SCH ×3 (08:55→20:44)
[2019-09-12] MEDS: CYCLOBENZAPRINE 10 MG TABLET PO SCH ×3 (09:05→20:44)
[2019-09-12] MEDS: LIDODERM 5% PATCH TD SCH (13:51)
[2019-09-12 13:53] VITALS: BP 111/76
[2019-09-12 20:22] VITALS: BP 113/77
[2019-09-12] MEDS: MAGNESIUM HYDROXIDE 8%, 30ML UDC PO SCH (20:44)
[2019-09-13] MEDS: ACETAMINOPHEN 500 MG TABLET PO SCH ×4 (02:33→19:45)
[2019-09-13 03:21] VITALS: BP 130/84
[2019-09-13] MEDS: HEPARIN 5,000 UNITS/ML, 1ML SQ SCH ×3 (06:44→23:06)
[2019-09-13] MEDS: INSULIN REGULAR 100 UNITS/ML, 3ML VIAL SQ-INSULIN SCH ×5 (07:12→21:00)
[2019-09-13] MEDS ORDERED: POLYETHYLENE GLYCOL 17 GM PACKET NG ONE (07:30)
[2019-09-13 07:36] VITALS: BP 114/77
[2019-09-13] MEDS: CYCLOBENZAPRINE 10 MG TABLET PO SCH ×3 (08:22→21:00)
[2019-09-13] MEDS: SENNA/DOCUSATE TABLET PO SCH ×2 (08:22→19:46)
[2019-09-13] MEDS: LIDODERM 5% PATCH TD SCH (13:47)
[2019-09-13 14:08] VITALS: BP 112/69
[2019-09-13] MEDS: GABAPENTIN 100 MG CAPSULE PO SCH ×2 (16:18→21:00)
[2019-09-13] MEDS: MAGNESIUM HYDROXIDE 8%, 30ML UDC PO SCH (19:46)
[2019-09-13 20:21] VITALS: BP 127/77
[2019-09-14 01:59] VITALS: BP 115/76
[2019-09-14] MEDS: ACETAMINOPHEN 500 MG TABLET PO SCH ×4 (03:49→21:13)
[2019-09-14] MEDS: GABAPENTIN 100 MG CAPSULE PO SCH ×2 (06:35→12:23)
[2019-09-14] MEDS: HEPARIN 5,000 UNITS/ML, 1ML SQ SCH ×3 (06:35→21:12)
[2019-09-14] MEDS: INSULIN REGULAR 100 UNITS/ML, 3ML VIAL SQ-INSULIN SCH ×4 (06:54→21:00)
[2019-09-14 07:00] VITALS: BP 107/76
[2019-09-14] MEDS: CYCLOBENZAPRINE 10 MG TABLET PO SCH ×3 (09:30→21:00)
[2019-09-14] MEDS: SENNA/DOCUSATE TABLET PO SCH ×2 (10:02→21:13)
[2019-09-14 12:05] VITALS: BP 112/77
[2019-09-14] MEDS: LIDODERM 5% PATCH TD SCH (13:19)
[2019-09-14] MEDS: GABAPENTIN 300 MG CAPSULE PO SCH ×2 (16:45→21:13)
[2019-09-14 20:30] VITALS: BP 145/83
[2019-09-14] MEDS: MAGNESIUM HYDROXIDE 8%, 30ML UDC PO SCH (21:00)
[2019-09-15 01:54] VITALS: BP 123/84
[2019-09-15] MEDS: ACETAMINOPHEN 500 MG TABLET PO SCH ×4 (04:46→22:14)
[2019-09-15] MEDS: HEPARIN 5,000 UNITS/ML, 1ML SQ SCH ×3 (06:24→23:51)
[2019-09-15] MEDS: GABAPENTIN 300 MG CAPSULE PO SCH ×2 (06:24→11:22)
[2019-09-15] MEDS: INSULIN REGULAR 100 UNITS/ML, 3ML VIAL SQ-INSULIN SCH ×4 (06:26→20:55)
[2019-09-15 06:34] VITALS: BP 102/70
[2019-09-15] MEDS: SENNA/DOCUSATE TABLET PO SCH ×2 (08:10→20:52)
[2019-09-15] MEDS: CYCLOBENZAPRINE 10 MG TABLET PO SCH ×3 (08:12→20:55)
[2019-09-15 12:34] VITALS: BP 108/74
[2019-09-15] MEDS: LIDODERM 5% PATCH TD SCH (13:30)
[2019-09-15] MEDS: GABAPENTIN 400 MG CAPSULE PO SCH ×2 (16:32→20:52)
[2019-09-15 20:16] VITALS: BP 100/73
[2019-09-15] MEDS: MAGNESIUM HYDROXIDE 8%, 30ML UDC PO SCH (20:55)
[2019-09-16 02:26] VITALS: BP 112/77
[2019-09-16] MEDS: ACETAMINOPHEN 500 MG TABLET PO SCH ×3 (04:24→21:14)
[2019-09-16] MEDS: GABAPENTIN 400 MG CAPSULE PO SCH ×4 (06:25→21:06)
[2019-09-16] MEDS: INSULIN REGULAR 100 UNITS/ML, 3ML VIAL SQ-INSULIN SCH ×4 (06:39→21:00)
[2019-09-16] MEDS: HEPARIN 5,000 UNITS/ML, 1ML SQ SCH ×2 (08:28→16:23)
[2019-09-16] MEDS: CYCLOBENZAPRINE 10 MG TABLET PO SCH ×3 (08:29→21:00)
[2019-09-16] MEDS: SENNA/DOCUSATE TABLET PO SCH ×2 (08:29→21:00)
[2019-09-16 09:55] VITALS: BP 114/77
[2019-09-16 13:11] VITALS: BP 110/74
[2019-09-16] MEDS: LIDODERM 5% PATCH TD SCH (13:30)
[2019-09-16 19:10] VITALS: BP 113/81
[2019-09-16] MEDS: MAGNESIUM HYDROXIDE 8%, 30ML UDC PO SCH (21:00)
[2019-09-17] MEDS: HEPARIN 5,000 UNITS/ML, 1ML SQ SCH ×3 (01:00→15:44)
[2019-09-17] MEDS: ACETAMINOPHEN 500 MG TABLET PO SCH ×4 (03:30→21:02)
[2019-09-17 03:46] VITALS: BP 109/76
[2019-09-17] MEDS: GABAPENTIN 400 MG CAPSULE PO SCH ×4 (06:19→21:03)
[2019-09-17] MEDS: INSULIN REGULAR 100 UNITS/ML, 3ML VIAL SQ-INSULIN SCH ×4 (07:00→21:00)
[2019-09-17] MEDS: CYCLOBENZAPRINE 10 MG TABLET PO SCH ×3 (07:53→21:02)
[2019-09-17] MEDS: SENNA/DOCUSATE TABLET PO SCH ×2 (08:17→21:03)
[2019-09-17 08:19] VITALS: BP 97/67
[2019-09-17] MEDS: LIDODERM 5% PATCH TD SCH (08:22)
[2019-09-17 14:32] VITALS: BP 113/77
[2019-09-17 19:33] VITALS: BP 101/71
[2019-09-17] MEDS: LIDODERM REMOVE PATCH NOTE XX SCH (20:15)
[2019-09-17] MEDS: MAGNESIUM HYDROXIDE 8%, 30ML UDC PO SCH (21:02)
[2019-09-18 00:14] VITALS: BP 109/77
[2019-09-18] MEDS: HEPARIN 5,000 UNITS/ML, 1ML SQ SCH ×3 (00:16→17:11)
[2019-09-18] MEDS: ACETAMINOPHEN 500 MG TABLET PO SCH ×4 (03:20→21:04)
[2019-09-18] MEDS: GABAPENTIN 400 MG CAPSULE PO SCH ×4 (06:38→21:04)
[2019-09-18] MEDS: INSULIN REGULAR 100 UNITS/ML, 3ML VIAL SQ-INSULIN SCH ×4 (07:00→21:00)
[2019-09-18] MEDS: CYCLOBENZAPRINE 10 MG TABLET PO SCH ×3 (07:22→21:04)
[2019-09-18 07:58] VITALS: BP 105/72
[2019-09-18] MEDS: SENNA/DOCUSATE TABLET PO SCH ×2 (09:27→21:05)
[2019-09-18] MEDS: LIDODERM 5% PATCH TD SCH (09:28)
[2019-09-18 12:46] VITALS: BP 112/76
[2019-09-18] MEDS: LIDODERM REMOVE PATCH NOTE XX SCH (20:15)
[2019-09-18] MEDS: MAGNESIUM HYDROXIDE 8%, 30ML UDC PO SCH (21:04)
[2019-09-18 21:12] VITALS: BP 113/77
[2019-09-19] MEDS: HEPARIN 5,000 UNITS/ML, 1ML SQ SCH ×3 (00:24→16:44)
[2019-09-19 00:27] VITALS: BP 107/71
[2019-09-19] MEDS: GABAPENTIN 400 MG CAPSULE PO SCH ×4 (05:52→22:29)
[2019-09-19] MEDS: ACETAMINOPHEN 500 MG TABLET PO SCH ×3 (05:52→18:05)
[2019-09-19] MEDS: INSULIN REGULAR 100 UNITS/ML, 3ML VIAL SQ-INSULIN SCH ×4 (07:00→21:00)
[2019-09-19] MEDS: CYCLOBENZAPRINE 10 MG TABLET PO SCH ×3 (08:21→22:30)
[2019-09-19] MEDS: SENNA/DOCUSATE TABLET PO SCH ×2 (08:23→22:30)
[2019-09-19] MEDS: LIDODERM 5% PATCH TD SCH (08:26)
[2019-09-19 09:54] VITALS: BP 105/71
[2019-09-19 14:30] VITALS: BP 113/68
[2019-09-19 18:48] VITALS: BP 112/78
[2019-09-19] MEDS: LIDODERM REMOVE PATCH NOTE XX SCH (20:15)
[2019-09-19] MEDS: MAGNESIUM HYDROXIDE 8%, 30ML UDC PO SCH (22:30)
[2019-09-20] MEDS: ACETAMINOPHEN 500 MG TABLET PO SCH ×4 (00:24→20:40)
[2019-09-20] MEDS: HEPARIN 5,000 UNITS/ML, 1ML SQ SCH ×3 (00:24→17:56)
[2019-09-20 02:28] VITALS: BP 105/72
[2019-09-20] MEDS: GABAPENTIN 400 MG CAPSULE PO SCH ×4 (06:30→20:39)
[2019-09-20] MEDS: INSULIN REGULAR 100 UNITS/ML, 3ML VIAL SQ-INSULIN SCH ×4 (07:00→21:00)
[2019-09-20 07:21] VITALS: BP 104/72
[2019-09-20] MEDS: CYCLOBENZAPRINE 10 MG TABLET PO SCH ×3 (08:52→20:39)
[2019-09-20] MEDS: LIDODERM 5% PATCH TD SCH (08:55)
[2019-09-20] MEDS: SENNA/DOCUSATE TABLET PO SCH ×2 (08:55→21:00)
[2019-09-20 12:24] VITALS: BP 109/74
[2019-09-20 12:34] VITALS: BP 103/72
[2019-09-20 19:13] VITALS: BP 123/85
[2019-09-20] MEDS: LIDODERM REMOVE PATCH NOTE XX SCH (20:15)
[2019-09-20] MEDS: MAGNESIUM HYDROXIDE 8%, 30ML UDC PO SCH (21:00)
[2019-09-21 03:22] VITALS: BP 114/79
[2019-09-21] MEDS: ACETAMINOPHEN 500 MG TABLET PO SCH ×3 (03:39→17:20)
[2019-09-21] MEDS: HEPARIN 5,000 UNITS/ML, 1ML SQ SCH ×2 (03:40→11:48)
[2019-09-21] MEDS: GABAPENTIN 400 MG CAPSULE PO SCH ×3 (06:35→17:21)
[2019-09-21 06:43] VITALS: BP 93/58
[2019-09-21] MEDS: INSULIN REGULAR 100 UNITS/ML, 3ML VIAL SQ-INSULIN SCH ×3 (07:00→16:00)
[2019-09-21] MEDS: SENNA/DOCUSATE TABLET PO SCH (09:00)
[2019-09-21] MEDS: CYCLOBENZAPRINE 10 MG TABLET PO SCH ×2 (09:31→17:20)
[2019-09-21] MEDS: LIDODERM 5% PATCH TD SCH (09:31)
[2019-09-21 12:00] VITALS: BP 104/72
[2019-09-21] MEDS ORDERED: GABA-827 PO (14:29)
[2019-09-21] MEDS ORDERED: OXYC5TAB3 PO (14:29)
[2019-09-21] MEDS ORDERED: MAGN400O7 PO (14:29)
[2019-09-21] MEDS ORDERED: CYCL-259 PO (14:29)
[2019-09-21] MEDS ORDERED: Lidoderm Remove Patch XX (14:29)
[2019-09-21] MEDS ORDERED: SENN-193 PO (14:29)
[2019-09-21 17:46] VITALS: BP 104/70
== END 2019-09-21 18:34 | DRG 471 ==
LOC: ED 21:11 → EDIP 21:33 → CSU 23:41 → CCU 09-03 00:14 → 4NE 09-06 11:48
PROVIDERS: ADMIT Family Medicine; ATTEND Internal Medicine
PROC: 0T9B70Z Drainage of Bladder with Drainage Device, Via Natural or Artificial Opening (ICD-10-PCS; 2019-08-30)
PROC: 01N10ZZ Release Cervical Nerve, Open Approach (ICD-10-PCS; 2019-08-31)
PROC: 00NW0ZZ Release Cervical Spinal Cord, Open Approach (ICD-10-PCS; 2019-08-31)
PROC: 03HY32Z Insertion of Monitoring Device into Upper Artery, Percutaneous Approach (ICD-10-PCS; 2019-08-31)
PROC: 4A11X4G Monitoring of Peripheral Nervous Electrical Activity, Intraoperative, External Approach (ICD-10-PCS; 2019-08-31)
PROC: 0RG207J Fusion of 2 or more Cervical Vertebral Joints with Autologous Tissue Substitute, Posterior Approach, Anterior Column, Open Approach (ICD-10-PCS; principal; 2019-08-31 12:00)
PROC: 02HV33Z Insertion of Infusion Device into Superior Vena Cava, Percutaneous Approach (ICD-10-PCS; 2019-09-02)
PROC: B548ZZA Ultrasonography of Superior Vena Cava, Guidance (ICD-10-PCS; 2019-09-02)
PROC: 5A09357 Assistance with Respiratory Ventilation, Less than 24 Consecutive Hours, Continuous Positive Airway Pressure (ICD-10-PCS; 2019-09-05)
DX: M47.12 Other spondylosis with myelopathy, cervical region (principal); G82.50 Quadriplegia, unspecified; J96.01 Acute respiratory failure with hypoxia; N17.0 Acute kidney failure with tubular necrosis; R57.0 Cardiogenic shock; S06.0X9A Concussion with loss of consciousness of unspecified duration, initial encounter; E66.2 Morbid (severe) obesity with alveolar hypoventilation; K59.2 Neurogenic bowel, not elsewhere classified; I50.42 Chronic combined systolic (congestive) and diastolic (congestive) heart failure; D64.9 Anemia, unspecified; D72.829 Elevated white blood cell count, unspecified; E11.9 Type 2 diabetes mellitus without complications; Z68.39 Body mass index [BMI] 39.0-39.9, adult; F17.200 Nicotine dependence, unspecified, uncomplicated; G47.00 Insomnia, unspecified; I07.1 Rheumatic tricuspid insufficiency; I11.0 Hypertensive heart disease with heart failure; I27.20 Pulmonary hypertension, unspecified; K59.00 Constipation, unspecified; J44.9 Chronic obstructive pulmonary disease, unspecified; M48.02 Spinal stenosis, cervical region; S14.129A Central cord syndrome at unspecified level of cervical spinal cord, initial encounter; T38.0X5A Adverse effect of glucocorticoids and synthetic analogues, initial encounter; W18.39XA Other fall on same level, initial encounter; Y93.89 Activity, other specified; Y92.89 Other specified places as the place of occurrence of the external cause; Y99.8 Other external cause status; N31.9 Neuromuscular dysfunction of bladder, unspecified; S01.511A Laceration without foreign body of lip, initial encounter; Z74.01 Bed confinement status; Z59.0 Homelessness
CPT/HCPCS: 36415; 36556; 51702; 72040; 96374; 99291; J3490; S0020; 36573; 70450; 70486; 71045; 71275; 72125; 72141; 74175; 80048; 80053; 80307; 81003; 82607; 82962; 83036; 83735; 83880; 84100; 84443; 84484; 85025; 85610; 85730; 87081; 93005; 93306; 94660; 95938; 95941; C1713; G0378; J0153; J0171; J0690; J1100; J1170; J1644; J1815; J2250; J2704; J2710; J3010; J3370; C1751; C1762; J2060; J2370; J2800; J7030; J7050; J7512; Q9968